=== PATIENT | female | born 1985 | race American Indian/Alaskan Native ===

== ENCOUNTER 2016-10-29 16:02 | Emergency (ER) | payer SELFPAY ==
[2016-10-29 17:18] LABS: Hematocrit 39.9 % (30.3-42.9); Hemoglobin 13.7 gm/dl (10.1-14.3); Mean Corpuscular HGB Conc 34 % (30-34); Mean Corpuscular Hemoglobin 31 pg (28-32); Mean Corpuscular Volume 90 fl (79-97); Platelet Count 394 K/mm3 (140-440); Red Blood Count 4.46 M/mm3 (3.65-5.03)
[2016-10-29 17:41] LABS: Anion Gap 20 mmol/L; BUN/Creatinine Ratio 18.33; Blood Urea Nitrogen 11 mg/dL (7-17); Calcium 9.4 mg/dL (8.4-10.2); Carbon Dioxide 24 mmol/L (22-30); Chloride 99.4 mmol/L (98-107); Glucose 87 mg/dL (65-100); Potassium 4.5 mmol/L (3.6-5.0); Sodium 139 mmol/L (137-145)
[2016-10-29 18:02] LABS: Basophils % (Manual) 0 % (0.0-1.8); Blastocytes % (Manual) 0 %; Eosinophils % (Manual) 0 % (0.0-4.3)
[2016-10-29 18:03] LABS: Diff Status Complete; RBC Morphology Normal
--- NOTE | 2016-10-29 21:45 | Emergency Department Report ---
ED Chest Pain HPI - General Chief Complaint: Chest Pain Stated Complaint: CHEST PAIN Time Seen by Provider: 10/29/16 21:43 Source: patient Mode of arrival: Ambulatory Limitations: No Limitations - History of Present Illness Initial Comments: This is a 31-year-old female. She is previously unknown to me. She does not have a local primary care doctor. She denies chronic medical conditions. She does not take oral contraceptives or any kind of estrogen supplementation. She does not use cocaine. The patient presents to the ER complaining of chest pain. The chest pain is central and in the left superior medial quadrant of the breast. The chest pain started on October 12 and lasted through October 13. It then resolved. Patient reports that since October 13, she has been experiencing intermittent discomfort. She further reports that she developed central chest pain today, at 2:00 PM, and it then moved to the left superior medial quadrant of the breast. There is no nausea, vomiting or diaphoresis. The pain does not radiate to the back, arms or neck. There is no leg pain. There is no leg swelling. The patient does report a recent trip to the [facility] on October 14 and returned on October 18. She reports at the airplane flight was 5 hours, but she denies leg pain and leg swelling. MD Complaint: chest pain -: Gradual Onset: during rest Pain Location: substernal, left chest Quality: aching Consistency: intermittent Improves With: rest Worsens With: palpation re: denies: nausea, vomting, diaphoresis, dyspnea, sense of impending doom Aspirin use within the Past 7 Days: (1) Yes - Related Data On Oral Contraceptives: No Previous Rx's Medication Instructions Recorded Last Taken Type Ibuprofen [Motrin] 600 mg PO Q8H PRN #30 tablet 10/29/16 Unknown Rx Allergies Allergy/AdvReac Type Severity Reaction Status Date / Time No Known Allergies Allergy Unverified 10/29/16 16:39 Heart Score - HEART Score History: Slightly suspicious EKG: Normal Age: < 45 Risk factors: No known risk factors Troponin: < normal limit HEART Score: 0 - Critical Actions Critical Actions: 0-3 pts:0.9-1.7%risk of adverse cardiac event.Candidate for discharge ED Review of Systems ROS: Stated complaint: CHEST PAIN Other details as noted in HPI Constitutional: denies: diaphoresis, fever Eyes: denies: eye discharge ENT: denies: epistaxis Respiratory: see HPI Cardiovascular: chest pain Gastrointestinal: denies: vomiting Genitourinary: as per HPI Musculoskeletal: as per HPI Skin: as per HPI Neurological: as per HPI Psychiatric: as per HPI Hematological/Lymphatic: as per HPI ED Past Medical Hx - Past Medical History Previous Medical History?: No - Surgical History Past Surgical History?: No - Social History Smoking Status: Never Smoker Substance Use Type: Alcohol - Medications Home Medications: Home Medications Medication Instructions Recorded Confirmed Last Taken Type Ibuprofen [Motrin] 600 mg PO Q8H PRN #30 tablet 10/29/16 Unknown Rx ED Physical Exam - General Limitations: No Limitations General appearance: alert, in no apparent distress - Head Head exam: Present: atraumatic, normocephalic - Eye Eye exam: Present: normal appearance, EOMI. Absent: nystagmus - ENT ENT exam: Present: normal exam, normal orophraynx, mucous membranes moist, normal external ear exam - Neck Neck exam: Present: normal inspection, full ROM. Absent: tenderness, meningismus - Respiratory Respiratory exam: Present: normal lung sounds bilaterally, chest wall tenderness (during the breast examination, I am escorted by nurse Shani Castro) , other (there is reproducible anterior chest wall tenderness. There is no redness, pus or streaking. There is reproducible tenderness in the left superior medial quadrant of the breast. There are no vesicles.). Absent: respiratory distress, wheezes, rales, rhonchi, stridor - Cardiovascular Cardiovascular Exam: Present: regular rate, normal rhythm, normal heart sounds. Absent: bradycardia, tachycardia, irregular rhythm, systolic murmur, diastolic murmur, rubs, gallop - GI/Abdominal GI/Abdominal exam: Present: soft, normal bowel sounds. Absent: distended, tenderness, guarding, rebound, rigid, pulsatile mass - Extremities Exam Extremities exam: Present: normal inspection, full ROM, normal capillary refill. Absent: pedal edema, joint swelling, calf tenderness - Back Exam Back exam: Present: normal inspection, full ROM. Absent: tenderness, CVA tenderness (R), CVA tenderness (L), muscle spasm, paraspinal tenderness, vertebral tenderness - Neurological Exam Neurological exam: Present: alert, oriented X3, normal gait, other (Extraocular movements intact. Tongue midline. No facial droop. Facial sensation intact to light touch in the V1, V2, V3 distribution bilaterally. 5 and 5 strength in 4 extremities.. Sensation is intact to light touch in 4 extremities.). Absent : motor sensory deficit - Psychiatric Psychiatric exam: Present: normal affect, normal mood - Skin Skin exam: Present: warm, dry, intact, normal color. Absent: rash ED Course Vital Signs 10/29/16 10/29/16 10/29/16 16:39 21:36 21:40 Temperature 98.6 F Pulse Rate 76 80 Respiratory 20 17 Rate Blood Pressure 123/82 123/78 Blood Pressure [Left] O2 Sat by Pulse 99 100 99 Oximetry 10/29/16 10/29/16 10/29/16 21:59 22:02 22:24 Temperature 98.4 F Pulse Rate 79 Respiratory 18 18 18 Rate Blood Pressure Blood Pressure 118/76 [Left] O2 Sat by Pulse 100 99 Oximetry - Reevaluation(s) Reevaluation #1: 10/29/16 22:08 The patient reports that she is not . The patient reports that her last period was 10/01/2016 JOSH score - Josh Score Age > 65: (0) No Aspirin use within the Past 7 Days: (1) Yes 3 or more CAD Risk Factors: (0) No 2 or more Angina events in past 24 hrs: (0) No Known CAD with more than 50% Stenosis: (0) No Elevated Cardiac Markers: (0) No ST Deviation Greater than 0.5mm: (0) No JOSH Score: 1 ED Medical Decision Making - Lab Data Result diagrams: 10/29/16 16:55 10/29/16 16:55 Vital Signs 10/29/16 10/29/16 10/29/16 16:39 21:36 21:40 Temperature 98.6 F Pulse Rate 76 80 Respiratory 20 17 Rate Blood Pressure 123/82 123/78 Blood Pressure [Left] O2 Sat by Pulse 99 100 99 Oximetry 10/29/16 10/29/16 21:59 22:02 Temperature 98.4 F Pulse Rate 79 Respiratory 18 18 Rate Blood Pressure Blood Pressure 118/76 [Left] O2 Sat by Pulse 100 99 Oximetry Labs 10/29/16 10/29/16 10/29/16 16:55 16:55 18:53 WBC 13.0 H RBC 4.46 Hgb 13.7 Hct 39.9 MCV 90 MCH 31 MCHC 34 RDW 13.0 L Plt Count 394 Lymph # Base Manager Add Manual Diff Complete Total Counted 100 Seg Neuts % (Manual) 55.0 Band Neutrophils % 0 Lymphocytes % (Manual) 36.0 H Reactive Lymphs % (Man) 0 Monocytes % (Manual) 9.0 H Eosinophils % (Manual) 0 Basophils % (Manual) 0 Metamyelocytes % 0 Myelocytes % 0 Promyelocytes % 0 Blast Cells % 0 Nucleated RBC % Not Reportable Seg Neutrophils # Man 7.2 Band Neutrophils # 0.0 Lymphocytes # (Manual) 4.7 Abs React Lymphs (Man) 0.0 Monocytes # (Manual) 1.2 H Eosinophils # (Manual) 0.0 Basophils # (Manual) 0.0 Metamyelocytes # 0.0 Myelocytes # 0.0 Promyelocytes # 0.0 Blast Cells # 0.0 WBC Morphology Not Reportable Hypersegmented Neuts Not Reportable Hyposegmented Neuts Not Reportable Hypogranular Neuts Not Reportable Smudge Cells Not Reportable Toxic Granulation Not Reportable Toxic Vacuolation Not Reportable Dohle Bodies Not Reportable Pelger-Huet Anomaly Not Reportable Don Rods Not Reportable Platelet Estimate Appears normal Clumped Platelets Not Reportable Plt Clumps, EDTA Not Reportable Large Platelets Not Reportable Giant Platelets Not Reportable Platelet Satelliting Not Reportable Plt Morphology Comment Not Reportable RBC Morphology Normal Dimorphic RBCs Not Reportable Polychromasia Not Reportable Hypochromasia Not Reportable Poikilocytosis Not Reportable Anisocytosis Not Reportable Microcytosis Not Reportable Macrocytosis Not Reportable Spherocytes Not Reportable Pappenheimer Bodies Not Reportable Sickle Cells Not Reportable Target Cells Not Reportable Tear Drop Cells Not Reportable Ovalocytes Not Reportable Helmet Cells Not Reportable [place] Bodies Not Reportable [place] Rings Not Reportable Wisam Cells Not Reportable Bite Cells Not Reportable Crenated Cell Not Reportable Elliptocytes Not Reportable Acanthocytes (Spur) Not Reportable Rouleaux Not Reportable Hemoglobin C Crystals Not Reportable Schistocytes Not Reportable Malaria parasites Not Reportable Arsen Bodies Not Reportable Hem Pathologist Commnt No Sodium 139 Potassium 4.5 Chloride 99.4 Carbon Dioxide 24 Anion Gap 20 BUN 11 Creatinine 0.6 L Estimated GFR > 60 BUN/Creatinine Ratio 18.33 Glucose 87 Calcium 9.4 Troponin T < 0.010 < 0.010 - EKG Data -: EKG Interpreted by Me EKG shows normal: sinus rhythm, axis, intervals, QRS complexes, ST-T waves Rate: normal - EKG Data 10/29/16 22:05 EKG #1 demonstrates normal sinus, 74 bpm, normal intervals, normal axis, not morphologically consistent with STEMI. EKG #2 demonstrates normal sinus, normal intervals, normal axis, not morphologically consistent with STEMI. Both EKGs are unchanged when compared to a prior prehospital EKG that was obtained at an outpatient urgent care center. - Radiology Data Radiology results: image reviewed interpreted by me: X-ray the chest is negative for acute disease - Medical Decision Making Differential diagnosis: Costochondritis, GERD, pneumonia, pleuritis, pericarditis, myocarditis, acute coronary syndrome Assessment and plan: 31-year-old female with intermittent chest pain since October 12. She is afebrile, with reassuring vital signs, EKG unremarkable 2, troponin negative 2, and her chest pain is reproducible. Patient is low risk by well's criteria, and is perc negative. Given that her pain was present prior to an airplane trip, I consider the patient low risk. In addition, her clinical history and reproducibility make a diagnosis of pulmonary embolus very unlikely. Myocarditis and pericarditis unlikely given lack of fever and tachycardia, negative troponin. X-ray of the chest was negative for acute findings. Patient understands that she is at low risk for major adverse cardiac event. She felt improved after pain medication, and she is instructed to follow up with outpatient waredresser for further evaluation and management. Critical care attestation.: If time is entered above; I have spent that time in minutes in the direct care of this critically ill patient, excluding procedure time. ED Disposition Clinical Impression: Chest wall pain Disposition: DC-01 TO HOME OR SELFCARE Is pt being admited?: No Does the pt Need Aspirin: No Condition: Stable Instructions: Chest Pain (ED), Costochondritis (ED) Additional Instructions: Take the pain medication as directed. Follow up with the listed waredresser within the next 3-5 days. Rest and avoid heavy lifting. Return to the ER right away with new pain, worsened pain, migration of pain, fevers, chills, confusion, intractable nausea or vomiting, inability to tolerate liquid feeds. Prescriptions: Ibuprofen [Motrin] 600 mg PO Q8H PRN #30 tablet PRN Reason: Pain Referrals: PRIMARY CARE, [Primary Care Provider] - 3-5 Days LILLIAN EAGLE MD [Staff Physician] - 3-5 Days ALDO SALAZAR MD [Staff Physician] - 3-5 Days
[2016-10-29] MEDS ORDERED: TORADOL IM ONE (22:02)
[2016-10-29 22:03] VITALS: BP 118/76
--- NOTE | 2016-10-30 07:22 | XRay Report ---
CHEST 2 VIEWS INDICATION: Left-sided chest pain for 2-3 weeks. COMPARISON: None similar at this institution. FINDINGS: PA and lateral chest radiographs demonstrate normal cardiomediastinal silhouette. Clear lungs. Intact bones. EKG leads. CONCLUSION: No acute disease in the chest. Thank you for the opportunity to participate in this patient's care.
== END 2016-10-29 22:33 | disposition home or self-care (01) ==
LOC: ED 16:02
DX: R07.89 Other chest pain (principal)
CPT/HCPCS: 36415; 71020; 80048; 84484; 85007; 85025; 93005; 93010; 96372; 99285; J1885

== ENCOUNTER 2018-06-20 21:25 | Emergency (ER) | payer OTHER ==
--- NOTE | 2018-06-20 21:34 | Emergency Department Report ---
Chief Complaint: Urogenital-Female Stated Complaint: PAIN IN LOWER LEFT PELVIC AREA Time Seen by Provider: 06/20/18 21:30 - HPI History of Present Illness: LLQ abd pain began a couple of days ago worsened today no fever, N/V/D, no urinary sx no heavy lifting No PMHx No PSHx no CVAT, LLQ TTP tylenol with relief - Exam Vital Signs: Vital Signs 06/20/18 21:28 Temperature 98.7 F Pulse Rate 110 H Respiratory 18 Rate Blood Pressure 157/97 O2 Sat by Pulse 98 Oximetry MSE screening note: Focused history and physical exam performed. Due to findings the following was ordered: UA, CBC, CMP, lipase ED Disposition for MSE Condition: Stable
[2018-06-20 22:02] LABS: Basophils # (Auto) 0.1 K/mm3 (0.0-0.1); Basophils % (Auto) 0.5 % (0.0-1.8); Eosinophils # (Auto) 0.2 K/mm3 (0.0-0.4); Eosinophils % (Auto) 1.1 % (0.0-4.3); Lymphocytes # (Auto) 4.4 K/mm3 (1.2-5.4); Lymphocytes % (Auto) 30.8 % (13.4-35.0); Mean Corpuscular HGB Conc 37 % (30-34); Mean Corpuscular Volume 89 fl (79-97); Monocytes # (Auto) 1.1 K/mm3 (0.0-0.8); Monocytes % (Auto) 7.6 % (0.0-7.3); Platelet Count 443 K/mm3 (140-440); Red Blood Count 4.18 M/mm3 (3.65-5.03); Red Cell Distribution Width 12.9 % (13.2-15.2)
[2018-06-20 22:08] LABS: Hematocrit 37.1 % (30.3-42.9); Hemoglobin 13.6 gm/dl (10.1-14.3)
[2018-06-20 22:11] LABS: Bacteria,Urine 1+ /HPF (Negative); Bilirubin,Urine NEG (Negative); Blood,Urine SM (Negative); Color,Urine Straw (Yellow); Mucus,Urine FEW /HPF; Urobilinogen,Urine < 2.0 mg/dL (<2.0)
[2018-06-20 22:17] LABS: Alanine Aminotransferase 12 units/L (7-56); Albumin 4.3 g/dL (3.9-5); BUN/Creatinine Ratio 9; Blood Urea Nitrogen 7 mg/dL (7-17); Calcium 9.3 mg/dL (8.4-10.2); Hemolysis Index 11
[2018-06-20 22:20] LABS: HCG Qualitative,Urine Negative (Negative)
[2018-06-20] MEDS ORDERED: NACL 0.9% 1000 ML 1,000 ML IV ONE (22:51)
[2018-06-20] MEDS ORDERED: ROCEPHIN/NS 1 GM/50 ML 1 GM/50 ML BAG IV ONE (22:51)
--- NOTE | 2018-06-20 23:14 | Emergency Department Report ---
ED Abdominal Pain HPI - General Chief Complaint: Urogenital-Female Stated Complaint: PAIN IN LOWER LEFT PELVIC AREA Time Seen by Provider: 06/20/18 21:30 Source: patient Mode of arrival: Ambulatory Limitations: No Limitations - History of Present Illness Initial Comments: Patient 32-year-old -[place] female who presents for left flank pain radiating to left for urinary frequency urgency patient denies fevers or chills no abdominal pain no nausea vomiting pain is 6/10 . Nothing pain is exacerbated by movement MD Complaint: abdominal pain Onset/Timin -: week(s) Location: LLQ, suprapubic Radiation: suprapubic Migration to: L flank Severity: moderate Severity scale (0 -10): 8 Quality: aching, sharp Consistency: constant Improves With: nothing Worsens With: movement Associated Symptoms: nausea, chills. denies: vomiting, diarrhea, fever, constipation, hematemesis, hematochezia, melena, hematuria, anorexia, syncope - Related Data LMP (females 10-50): last week Previous Rx's Medication Instructions Recorded Last Taken Type Ibuprofen [Motrin] 600 mg PO Q8H PRN #30 tablet 10/29/16 Unknown Rx Ibuprofen 800 mg PO TID PRN #30 tablet 06/21/18 Unknown Rx Nitrofurantoin Monohyd/M-Cryst 100 mg PO BID 7 Days #14 capsule 06/21/18 Unknown Rx [Macrobid 100 mg Capsule] Allergies Allergy/AdvReac Type Severity Reaction Status Date / Time No Known Allergies Allergy Unverified 10/29/16 16:39 ED Review of Systems ROS: Stated complaint: PAIN IN LOWER LEFT PELVIC AREA Other details as noted in HPI Constitutional: denies: chills, fever Eyes: denies: eye pain, eye discharge, vision change ENT: denies: ear pain, throat pain Respiratory: denies: cough, shortness of breath, wheezing Cardiovascular: denies: chest pain, palpitations Endocrine: no symptoms reported Gastrointestinal: abdominal pain, nausea Genitourinary: frequency. denies: urgency, dysuria, hematuria, discharge, abnormal menses, dyspareunia Musculoskeletal: back pain Skin: denies: rash, lesions Neurological: denies: headache, weakness, paresthesias Psychiatric: denies: anxiety, depression Hematological/Lymphatic: denies: easy bleeding, easy bruising ED Past Medical Hx - Past Medical History Previous Medical History?: No - Surgical History Past Surgical History?: No - Social History Smoking Status: Never Smoker Substance Use Type: None - Medications Home Medications: Home Medications Medication Instructions Recorded Confirmed Last Taken Type Ibuprofen [Motrin] 600 mg PO Q8H PRN #30 tablet 10/29/16 Unknown Rx Ibuprofen 800 mg PO TID PRN #30 tablet 06/21/18 Unknown Rx Nitrofurantoin Monohyd/M-Cryst 100 mg PO BID 7 Days #14 capsule 06/21/18 Unknown Rx [Macrobid 100 mg Capsule] ED Physical Exam - General Limitations: No Limitations General appearance: alert, in no apparent distress - Head Head exam: Present: atraumatic, normocephalic, normal inspection - Eye Eye exam: Present: normal appearance, PERRL, EOMI Pupils: Present: normal accommodation - ENT ENT exam: Present: normal orophraynx, mucous membranes moist - Neck Neck exam: Present: normal inspection, full ROM. Absent: tenderness, meningismus, lymphadenopathy, thyromegaly - Respiratory Respiratory exam: Present: normal lung sounds bilaterally. Absent: respiratory distress, wheezes, stridor, chest wall tenderness - Cardiovascular Cardiovascular Exam: Present: normal rhythm, normal heart sounds. Absent: systolic murmur, diastolic murmur, rubs, gallop - GI/Abdominal GI/Abdominal exam: Present: soft, tenderness (LLQ ), normal bowel sounds. Absent: guarding, rebound, rigid, bruit, hernia - Expanded GI/Abdominal Exam Expanded GI/Abdominal exam: Absent: psoas sign, obturator sign, heel tap sign, Aguiar's sign, Rovsing's sign, tenderness at Mcburney's Point, ascites - Rectal Rectal exam: Present: deferred - Extremities Exam Extremities exam: Present: normal inspection, full ROM, normal capillary refill. Absent: pedal edema, joint swelling, calf tenderness - Back Exam Back exam: Present: normal inspection, full ROM, CVA tenderness (R), CVA tenderness (L). Absent: tenderness, muscle spasm, paraspinal tenderness, vertebral tenderness, rash noted - Neurological Exam Neurological exam: Present: alert, oriented X3, CN II-XII intact, normal gait, reflexes normal - Psychiatric Psychiatric exam: Present: normal affect, normal mood - Skin Skin exam: Present: warm, dry, intact, normal color. Absent: rash ED Course Vital Signs 06/20/18 06/21/18 21:28 00:17 Temperature 98.7 F Pulse Rate 110 H Respiratory 18 18 Rate Blood Pressure 157/97 O2 Sat by Pulse 98 98 Oximetry ED Medical Decision Making - Lab Data Result diagrams: 06/20/18 21:41 06/20/18 21:41 Labs 06/20/18 06/20/18 06/20/18 21:41 21:41 21:41 WBC 14.2 H RBC 4.18 Hgb 13.6 Hct 37.1 MCV 89 MCH 32 MCHC 37 H RDW 12.9 L Plt Count 443 H Lymph % (Auto) 30.8 Parker % (Auto) 7.6 H Eos % (Auto) 1.1 Baso % (Auto) 0.5 Lymph # 4.4 Parker # 1.1 H Eos # 0.2 Baso # 0.1 Seg Neutrophils % 60.0 Seg Neutrophils # 8.5 H Sodium 138 Potassium 4.1 Chloride 99.6 Carbon Dioxide 24 Anion Gap 19 BUN 7 Creatinine 0.8 Estimated GFR > 60 BUN/Creatinine Ratio 9 Glucose 134 H Calcium 9.3 Total Bilirubin 0.30 AST 15 ALT 12 Alkaline Phosphatase 66 Total Protein 7.7 Albumin 4.3 Albumin/Globulin Ratio 1.3 Lipase 46 Urine Color Urine Turbidity Urine pH Ur Specific [place] Urine Protein Urine Glucose (UA) Urine Ketones Urine Blood Urine Nitrite Urine Bilirubin Urine Urobilinogen Ur Leukocyte Esterase Urine WBC (Auto) Urine RBC (Auto) U Epithel Cells (Auto) Urine Bacteria (Auto) Urine Mucus Urine HCG, Qual 06/20/18 21:43 WBC RBC Hgb Hct MCV MCH MCHC RDW Plt Count Lymph % (Auto) Parker % (Auto) Eos % (Auto) Baso % (Auto) Lymph # Parker # Eos # Baso # Seg Neutrophils % Seg Neutrophils # Sodium Potassium Chloride Carbon Dioxide Anion Gap BUN Creatinine Estimated GFR BUN/Creatinine Ratio Glucose Calcium Total Bilirubin AST ALT Alkaline Phosphatase Total Protein Albumin Albumin/Globulin Ratio Lipase Urine Color Straw Urine Turbidity Clear Urine pH 7.0 Ur Specific [place] 1.008 Urine Protein 100 mg/dl Urine Glucose (UA) Neg Urine Ketones Neg Urine Blood Sm Urine Nitrite Neg Urine Bilirubin Neg Urine Urobilinogen < 2.0 Ur Leukocyte Esterase Lg Urine WBC (Auto) 91.0 H Urine RBC (Auto) 23.0 U Epithel Cells (Auto) < 1.0 Urine Bacteria (Auto) 1+ Urine Mucus Few Urine HCG, Qual Negative - Radiology Data Radiology results: report reviewed, image reviewed Final assessment is hydrated - Medical Decision Making CT abdomen and pelvis nontender no mass no hydronephrosis noted no obstruction no renal stones patient given IV Rocephin hydrated with normal saline 1 L pain is improved at this time plan DC home with prescription for Macrobid and says when necessary pain follow up with PCP in 2-3 days return to ED should symptoms worsen pt dc 'd to home in stable condition at this time. Critical care attestation.: If time is entered above; I have spent that time in minutes in the direct care of this critically ill patient, excluding procedure time. ED Disposition Clinical Impression: UTI (urinary tract infection) Qualifiers: Urinary tract infection type: acute cystitis Hematuria presence: without hem aturia Qualified Code(s): N30.00 - Acute cystitis without hematuria Abdominal pain Qualifiers: Abdominal location: generalized Qualified Code(s): R10.84 - Generalized abdominal pain Disposition: DC-01 TO HOME OR SELFCARE Is pt being admited?: No Does the pt Need Aspirin: No Condition: Stable Instructions: Urinary Tract Infection in Women (ED), Abdominal Pain (ED) Prescriptions: Ibuprofen 800 mg PO TID PRN #30 tablet PRN Reason: pain fever Nitrofurantoin Monohyd/M-Cryst [Macrobid 100 mg Capsule] 100 mg PO BID 7 Days #14 capsule Forms: Work/School Release Form(ED) Time of Disposition: 02:21
--- NOTE | 2018-06-21 01:55 | Cat Scan Report ---
PROCEDURE: CT ABDOMEN PELVIS WO CON TECHNIQUE: Computerized axial tomography of the abdomen and pelvis was performed without intravenous contrast. This study is performed without intravascular contrast material and its sensitivity for ab dominal and pelvic pathology, including neoplasms, inflammation, abscess, free fluid, thrombosis, art erial dissection and infarction, is reduced compared with a contrast enhanced study. CT DOSE LENGTH PRODUCT: mGycm HISTORY: UTI Flank pain hematuria COMPARISONS: None . FINDINGS: Visualized lower thorax: No significant abnormality. Liver: Normal size and attenuation. Spleen: Normal size and attenuation. Gallbladder and biliary system: Normal. Pancreas: Normal. Adrenals: Normal. Kidneys: There are no kidney stones or ureteral stones. There is no hydronephrosis.. GI tract: There is no bowel obstruction, colitis or enteritis. The appendix is normal. . Lymph nodes and mesentery: Normal. Vasculature: Normal.. Bladder: Normal. Reproductive organs: Normal. Peritoneum: There is no ascites or free air, abscess or adenopathy.. Musculoskeletal structures: No significant abnormality. IMPRESSION: There are no kidney stones or ureteral stones. There is no hydronephrosis. There is no bowel obstruction, colitis or enteritis. The appendix is normal. There is no ascites or free air, abscess or adenopathy. This document is electronically signed by Sefreino Ritter MD., June 21 2018 01:53:32 AM ET
[2018-06-21 02:55] VITALS: BP 133/88
== END 2018-06-21 02:59 | disposition home or self-care (01) ==
LOC: ED 21:25
DX: N39.0 Urinary tract infection, site not specified (principal)
CPT/HCPCS: 36415; 74176; 80053; 81001; 81025; 83690; 85025; 96374; 99284; J0696; J7030